=== PATIENT | female | born 1990 | race African-American/Black ===

== ENCOUNTER 2019-10-08 11:58 | Emergency (ER) | payer MEDICAID ==
[~2019-10-08] VITALS: Ht 167.6 cm; Wt 59.0 kg
[2019-10-08 13:04] LABS: BASOPHILS % 0.5 % (0.0-2.0); EOSINOPHILS % 0.1 % (0.0-5.0); HEMATOCRIT. 38.7 % (36.0-48.0); HEMOGLOBIN. 13.2 g/dL (12.0-16.0); LYMPHOCYTES % 13.4 % (20.0-50.0); MEAN CORPUSCULAR HEMOGLOBIN 27.9 pg (28.0-32.0); MEAN CORPUSCULAR VOLUME 81.5 fL (81.0-99.0); MEAN PLATELET VOLUME 7.4 fl (7.4-10.4); MONOCYTES % 5.6 % (2.0-8.0); NEUTROPHILS % 80.4 % (40.0-76.0); PLATELET 336 x1000/uL (130-400); RED BLOOD CELL COUNT 4.75 mill/uL (4.2-5.4); RED CELL DISTRIBUTION WIDTH 14.4 % (11.6-14.6)
[2019-10-08 13:09] LABS: CHLORIDE 103 mEq/L (98-107)
[2019-10-08 13:13] LABS: ETHANOL BLOOD < 10 mg/dL; INR 1.1; PROTHROMBIN TIME 11.4 sec (9.6-11.0)
[2019-10-08 13:14] LABS: HCG SCREEN POSITIVE
[2019-10-08 13:32] LABS: B-HCG QUANTITATIVE 24147 mIU/mL (<3)
[2019-10-08 14:06] LABS: CLARITY URINE CLOUDY (CLEAR); COLOR URINE DK YELLOW (YELLOW); KETONES URINE 3+ (NEGATIVE); LEUKOCYTE ESTERASE URINE 2+ (NEGATIVE); NITRITE URINE NEGATIVE (NEGATIVE); OCCULT BLOOD URINE NEGATIVE (NEGATIVE); PROTEIN URINE 1+ (NEGATIVE); SPECIFIC GRAVITY URINE 1.026 (1.005-1.030)
[2019-10-08 14:18] LABS: *AMPHETAMINES SCREEN URINE NEGATIVE (NEGATIVE); *BARBITURATES SCREEN URINE NEGATIVE (NEGATIVE); *COCAINE SCREEN URINE NEGATIVE (NEGATIVE); METHADONE URINE SCREEN NEGATIVE (NEGATIVE); OPIATES URINE SCREEN NEGATIVE (NEGATIVE)
[2019-10-08 14:19] LABS: PHENCYCLIDINE URINE SCREEN NEGATIVE (NEGATIVE)
[2019-10-08 14:27] LABS: *BENZODIAZEPINES SCREEN URINE PRESUMTIVE POSITIVE (NEGATIVE); CANNABINOID URINE SCREEN PRESUMTIVE POSITIVE (NEGATIVE)
[2019-10-08] MEDS ORDERED: CEFAZOLIN 1000MG PREMIX 50 ML IV ONE (14:30)
[2019-10-08] MEDS ORDERED: ONDANSETRON HCL 4MG/2ML INJ IV ONE (14:45)
[2019-10-08 16:10] VITALS: BP 110/60
== END 2019-10-08 16:16 | disposition home or self-care (01) ==
LOC: ER 11:58
DX: O21.1 Hyperemesis gravidarum with metabolic disturbance (principal); O99.321 Drug use complicating pregnancy, first trimester; F12.90 Cannabis use, unspecified, uncomplicated; Z3A.01 Less than 8 weeks gestation of pregnancy
CPT/HCPCS: 36415; 76801; 76817; 80053; 80305; 80320; 81003; 83690; 84702; 84703; 85025; 85610; 86850; 86900; 86901; 96365; 96375; 99284; J0690; J2405; G0480

== ENCOUNTER 2019-10-11 11:33 | Emergency (ER) | payer MEDICAID ==
[~2019-10-11] VITALS: Ht 167.6 cm; Wt 58.9 kg
[2019-10-11] MEDS ORDERED: SODIUM CHLORIDE 0.9% 1,000 ML IV ONE (11:57)
[2019-10-11] MEDS ORDERED: FAMOTIDINE 20MG/2ML VIAL IV ONE (12:00)
[2019-10-11] MEDS ORDERED: METOCLOPRAMIDE HCL 10MG/2ML VIAL IV ONE (12:00)
[2019-10-11 12:12] LABS: BASOPHILS % 0.6 % (0.0-2.0); HEMATOCRIT. 40.3 % (36.0-48.0); HEMOGLOBIN. 13.8 g/dL (12.0-16.0); LYMPHOCYTES % 17.9 % (20.0-50.0); MEAN CORPUSCULAR HEMOGLOBIN 27.8 pg (28.0-32.0); MEAN CORPUSCULAR VOLUME 81.2 fL (81.0-99.0); MEAN PLATELET VOLUME 7.5 fl (7.4-10.4); MONOCYTES % 7.1 % (2.0-8.0); NEUTROPHILS % 74.4 % (40.0-76.0); PLATELET 347 x1000/uL (130-400); RED BLOOD CELL COUNT 4.96 mill/uL (4.2-5.4); RED CELL DISTRIBUTION WIDTH 14.4 % (11.6-14.6)
[2019-10-11 12:18] LABS: CHLORIDE 98 mEq/L (98-107)
[2019-10-11] MEDS ORDERED: POTASSIUM CHLORIDE 20MEQ TABLET SR PO ONE (12:45)
[2019-10-11 12:53] LABS: B-HCG QUANTITATIVE 46776 mIU/mL (<3)
[2019-10-11 13:12] VITALS: BP 108/51
== END 2019-10-11 13:14 | disposition home or self-care (01) ==
LOC: ER 12:40
DX: O21.8 Other vomiting complicating pregnancy (principal); O26.891 Other specified pregnancy related conditions, first trimester; E87.6 Hypokalemia; A59.9 Trichomoniasis, unspecified; Z3A.01 Less than 8 weeks gestation of pregnancy
CPT/HCPCS: 36415; 80053; 84702; 85025; 96361; 96374; 96375; 99284; J2765; J3490; J7030

== ENCOUNTER 2019-10-19 11:26 | Emergency (ER) | payer MEDICAID ==
[~2019-10-19] VITALS: Ht 167.6 cm; Wt 58.9 kg
[2019-10-19] MEDS ORDERED: SODIUM CHLORIDE 0.9% 1,000 ML IV ONE (12:58)
[2019-10-19] MEDS ORDERED: ONDANSETRON HCL 4MG/2ML INJ IV ONE (13:00)
[2019-10-19 13:21] LABS: BASOPHILS % 0.4 % (0.0-2.0); EOSINOPHILS % 0.1 % (0.0-5.0); HEMATOCRIT. 40.7 % (36.0-48.0); HEMOGLOBIN. 13.8 g/dL (12.0-16.0); LYMPHOCYTES % 29.9 % (20.0-50.0); MEAN CORPUSCULAR HEMOGLOBIN 27.9 pg (28.0-32.0); MEAN CORPUSCULAR VOLUME 82.5 fL (81.0-99.0); MEAN PLATELET VOLUME 7.8 fl (7.4-10.4); NEUTROPHILS % 62.6 % (40.0-76.0); PLATELET 305 x1000/uL (130-400); RED BLOOD CELL COUNT 4.93 mill/uL (4.2-5.4); RED CELL DISTRIBUTION WIDTH 14.7 % (11.6-14.6)
[2019-10-19 13:28] LABS: CHLORIDE 95 mEq/L (98-107)
[2019-10-19 13:52] LABS: B-HCG QUANTITATIVE 127027 mIU/mL (<3)
[2019-10-19 14:46] LABS: CLARITY URINE CLEAR (CLEAR); COLOR URINE DARK YELLOW (YELLOW); KETONES URINE 4+ (NEGATIVE); LEUKOCYTE ESTERASE URINE TRACE (NEGATIVE); NITRITE URINE NEGATIVE (NEGATIVE); OCCULT BLOOD URINE NEGATIVE (NEGATIVE); PROTEIN URINE 1+ (NEGATIVE); SPECIFIC GRAVITY URINE 1.023 (1.005-1.030)
[2019-10-19 15:02] VITALS: BP 119/48
== END 2019-10-19 15:03 | disposition home or self-care (01) ==
LOC: ER 11:26
DX: O21.0 Mild hyperemesis gravidarum (principal); Z3A.01 Less than 8 weeks gestation of pregnancy
CPT/HCPCS: 36415; 76801; 76817; 80053; 81003; 84702; 85025; 96374; 99284; J2405; J7030

== ENCOUNTER 2019-10-23 00:59 | Inpatient (IN) | payer MEDICAID ==
[~2019-10-23] VITALS: Ht 167.6 cm; Wt 59.0 kg
[2019-10-23] MEDS ORDERED: ACETAMINOPHEN 325MG TABLET PO PRN (02:00)
[2019-10-23] MEDS ORDERED: SODIUM CHLORIDE 0.9% 1,000 ML IV ONE (02:07)
[2019-10-23] MEDS ORDERED: ONDANSETRON HCL 4MG/2ML INJ IV STA (02:07)
[2019-10-23 02:18] LABS: BASOPHILS % 0.4 % (0.0-2.0); EOSINOPHILS % 0.1 % (0.0-5.0); HEMATOCRIT. 38.7 % (36.0-48.0); HEMOGLOBIN. 13.3 g/dL (12.0-16.0); MEAN CORPUSCULAR HEMOGLOBIN 28.1 pg (28.0-32.0); MEAN CORPUSCULAR VOLUME 81.5 fL (81.0-99.0); MONOCYTES % 8.2 % (2.0-8.0); NEUTROPHILS % 62.3 % (40.0-76.0); PLATELET 314 x1000/uL (130-400); RED BLOOD CELL COUNT 4.75 mill/uL (4.2-5.4); RED CELL DISTRIBUTION WIDTH 14.1 % (11.6-14.6)
[2019-10-23 02:23] LABS: CHLORIDE 96 mEq/L (98-107)
[2019-10-23 02:46] LABS: B-HCG QUANTITATIVE 139446 mIU/mL (<3)
[2019-10-23] MEDS ORDERED: KCL 20MEQ/100ML PREMIX 100 ML IV ONE (03:00)
[2019-10-23 05:21] VITALS: BP 101/50
[2019-10-23 06:12] VITALS: BP 101/50
[2019-10-23 08:00] VITALS: BP 98/51
[2019-10-23] MEDS: ONDANSETRON HCL 4MG/2ML INJ IV PRN ×2 (09:05→16:12)
[2019-10-23] MEDS: DEXT 5%/LACTATED RINGERS 1,000 ML IV SCH ×2 (09:09→14:55)
[2019-10-23] MEDS ORDERED: FOLIC ACID 1 MG, THIAMINE HCL 100 MG, MVI, ADULT NO.1 10 ML in DEXTROSE 5% WATER 1,000 ML IV SCH ×4 (10:00)
[2019-10-23 12:00] VITALS: BP 99/57
[2019-10-23] MEDS ORDERED: KCL 20MEQ/100ML PREMIX 100 ML IV NR (14:00)
[2019-10-23] MEDS ORDERED: PYRIDOXINE 100 MG/ML 1ML IM NR (14:00)
[2019-10-23 16:00] VITALS: BP 92/48
[2019-10-23 20:00] VITALS: BP 106/42
[2019-10-23] MEDS: PANTOPRAZOLE SODIUM 40 MG/VIAL IV SCH (21:23)
[2019-10-23] MEDS ORDERED: POTASSIUM CHLORIDE INJ 40 MEQ in DEXT 5% WATER 500 ML IV NR (22:30)
[2019-10-24] VITALS: BP 96/48
[2019-10-24] MEDS: ONDANSETRON HCL 4MG/2ML INJ IV PRN (02:16)
[2019-10-24 04:00] VITALS: BP 111/52
[2019-10-24 08:00] VITALS: BP 115/60
[2019-10-24] MEDS: PANTOPRAZOLE SODIUM 40 MG/VIAL IV SCH (08:57)
== END 2019-10-24 10:52 | disposition left against medical advice (07) | DRG 566 ==
LOC: ER 00:59 → 6EST 03:28 → ENRESERV 04:01
PROVIDERS: ADMIT Obstetrics & Gynecology; ATTEND Obstetrics & Gynecology
DX: O21.1 Hyperemesis gravidarum with metabolic disturbance (principal); N94.89 Other specified conditions associated with female genital organs and menstrual cycle; O34.81 Maternal care for other abnormalities of pelvic organs, first trimester; O99.281 Endocrine, nutritional and metabolic diseases complicating pregnancy, first trimester; Z3A.08 8 weeks gestation of pregnancy
CPT/HCPCS: 36415; 76815; 80053; 84132; 84702; 85025; 99285; C9113; J2405; J3411; J3415; J3480; J3490; J7030; J7060; J7070; J7121